=== PATIENT | female | born 1985 | race Caucasian/White ===

== ENCOUNTER 2016-06-28 00:20 | Emergency (ER) | payer OTHER ==
[~2016-06-28] VITALS: Ht 160 cm; Wt 61.2 kg
[~2016-06-28 00:20] MED LIST: AMPH25CA3; CEPH500C PO; HYDR1TAB PO; OCELLA
[2016-06-28] MEDS ORDERED: D5 NS 1000 ML IV SOLUTION 1,000 ML IV ONE ×2 (00:29→00:45)
[2016-06-28] MEDS ORDERED: fentaNYL INJECTION 100 MCG/2 ML AMP IVP ONE (00:30)
[2016-06-28] MEDS ORDERED: TETANUS,DIPTH,PERTUSS P/F (BOOSTRIX) 0.5 ML VIAL IM ONE (00:30)
[2016-06-28] MEDS ORDERED: ceFAZolin 2 GM/50 ML NS 50 ML IV ONE (00:30)
[2016-06-28 00:36] LABS: MEAN PLATELET VOLUME 10.6 FL (7.4-10.4); RED BLOOD COUNT 4.31 10^6/uL (4.35-5.85); RED CELL DISTRIBUTION WIDTH 12.9 % (10.0-14.5); WHITE BLOOD COUNT 9.9 10^3/uL (4.3-11.0)
[2016-06-28] MEDS ORDERED: ONDANSETRON 4 MG/2 ML (SDV) Z0FRAN ONE (00:44)
[2016-06-28 00:55] LABS: ALANINE AMINOTRANSFERASE 15 U/L (0-55); ALBUMIN 4.4 G/DL (3.2-4.5); ALCOHOL 49 MG/DL (<10); ANION GAP 14 MMOL/L (5-14); ASPARTATE AMINO TRANSFERASE 30 U/L (5-34); BILIRUBIN,DIRECT 0.1 MG/DL (0.0-0.3); BILIRUBIN,INDIRECT 0.3 MG/DL; BILIRUBIN,TOTAL 0.4 MG/DL (0.1-1.0); BLOOD UREA NITROGEN 8 MG/DL (7-18); BUN/CREATININE RATIO 10; CALCIUM 9.3 MG/DL (8.5-10.1); CARBON DIOXIDE 20 MMOL/L (21-32); CHLORIDE 106 MMOL/L (98-107); CREATININE SERUM 0.79 MG/DL (0.60-1.30); GFR ESTIMATED > 60; GLUCOSE 100 MG/DL (70-105); POTASSIUM 3.3 MMOL/L (3.6-5.0); SODIUM 140 MMOL/L (135-145)
[2016-06-28] MEDS ORDERED: NS (IVPB) 50 ML ONE (01:00)
[2016-06-28] MEDS ORDERED: ceFAZolin 1,000 MG (ANCEF) VIAL ONE (01:00)
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
[2016-06-28] MEDS ORDERED: morphine INJ 10 MG/ML 1ML (SYR OR VIAL) IVP ONE (02:00)
[2016-06-28 02:11] LABS: BILIRUBIN,URINE NEGATIVE (NEGATIVE); KETONES,URINE NEGATIVE (NEGATIVE); LEUKOCYTE ESTERASE ,URINE NEGATIVE (NEGATIVE); NITRITE,URINE NEGATIVE (NEGATIVE); PH,URINE 8 (5-9); PROTEIN,URINE NEGATIVE (NEGATIVE); UROBILINOGEN,URINE NORMAL (NORMAL)
[2016-06-28] MEDS ORDERED: CLINDAMYCIN INJECTION 900 MG in NS (IVPB) 50 ML IV ONE (02:30)
[2016-06-28 03:31] VITALS: BP 115/54
--- NOTE | 2016-06-28 07:35 | Diagnostic Imaging Report ---
INDICATION: Pain EXAMINATION: Left knee 06/28/2016 Three views of the knee FINDINGS: There is no evidence for an acute fracture or dislocation. The joint spaces are well maintained. There is no significant soft tissue swelling. IMPRESSION: No acute process. Dictated by: Dictated on workstation # [id number]
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
--- NOTE | 2016-06-28 08:51 | Diagnostic Imaging Report ---
PROCEDURE: CT chest, abdomen, and pelvis with contrast. TECHNIQUE: Multiple contiguous axial images were obtained through the chest, abdomen, and pelvis after the administration of intravenous contrast. INDICATION: Jaw pain EXAMINATION: CT chest, abdomen, and pelvis with contrast 06/28/2016 Comparison made to 08/14/2009. FINDINGS: Mediastinal structures unremarkable. Axilla unremarkable. Lungs demonstrate no pneumothorax. There are no pericardial or pleural effusions. Bibasilar dependent atelectasis is noted. Within the abdomen and pelvis mild heterogeneity throughout the liver likely due to areas of fatty infiltration. No acute process seen in the liver. The spleen and adrenal glands as well as the pancreas unremarkable. Kidneys unremarkable. There is no lymphadenopathy, free air or free fluid. Within the pelvis, the appendix is seen. It is unremarkable in appearance. No surrounding inflammation is appreciated. Minimal free fluid in the pelvis most likely physiologic with tiny cystic changes in both ovaries, right greater than left. No acute abnormality seen in pelvis. Urinary bladder is diffusely distended. Multiple Schmorl's node seen throughout the thoracolumbar spine with no acute osseous abnormalities appreciated. IMPRESSION: 1. Minimal incidental findings as described above with no acute process in the chest, abdomen or pelvis. Findings agree with the preliminary report. Dictated by: Dictated on workstation # [id number]
== END 2016-06-28 04:02 | disposition short-term general hospital (02) ==
LOC: EDUNIT# 00:20 → ER 00:22
DX: S02.609A Fracture of mandible, unspecified, initial encounter for closed fracture (principal); S81.812A Laceration without foreign body, left lower leg, initial encounter; S81.811A Laceration without foreign body, right lower leg, initial encounter; Z23 Encounter for immunization; E16.2 Hypoglycemia, unspecified; Y90.2 Blood alcohol level of 40-59 mg/100 ml; V43.52XA Car driver injured in collision with other type car in traffic accident, initial encounter; Y92.410 Unspecified street and highway as the place of occurrence of the external cause; Y99.8 Other external cause status
CPT/HCPCS: 36415; 70450; 70486; 71010; 71260; 72125; 72170; 73562; 74177; 80048; 80076; 80320; 81000; 82962; 84703; 85027; 86850; 86900; 86901; 90471; 90715; 93041; 96361; 96365; 96367; 96375

== ENCOUNTER 2016-07-24 17:33 | Emergency (ER) | payer SELFPAY ==
[~2016-07-24] VITALS: Ht 160 cm; Wt 54.4 kg
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
[2016-07-24] MEDS ORDERED: AMOX250S5 PO (17:52)
[2016-07-24] MEDS ORDERED: ONDA4SOL2 PO (18:01)
[2016-07-24 18:17] VITALS: BP 114/74
== END 2016-07-24 18:17 | disposition home or self-care (01) ==
LOC: EDUNIT# 17:33 → ER 17:34
DX: K13.79 Other lesions of oral mucosa (principal)
CPT/HCPCS: 99282